=== PATIENT | male | born 1995 | race Caucasian/White ===

== ENCOUNTER 2024-01-23 11:00 | Emergency (ER) | payer SELFPAY ==
[2024-01-23 11:06] VITALS: BP 130/61; PULSE 62; TEMP 36.7; O2SAT 100; BMI 16.6
--- NOTE | 2024-01-23 11:21 | ED.GENADUL1 ---
HPI HPI - General Adult General Chief complaint: Back Pain/Injury Stated complaint: UPPER BACK PAIN Time Seen by Provider: 01/23/24 11:06 Source: patient Mode of arrival: walk-in History of Present Illness HPI narrative: Patient presents to ED complaining of left upper back pain. He said he thinks he may have slept wrong on it last night and when he got up today with turning his head and certain movements he felt a pinching pain. He said he was trying to work today and he does a lot of lifting and bending at work and it was really hurting and sometimes taking his breath away because of the pain.He said sometimes the pain goes into his arm. No arm weakness no known trauma. Normal distal pulses and sensation. No chronic back or neck pain per patient. He said the pain was concerning him and he kind of worked himself into an anxiety situation so he came in for evaluation Related Data Previous Rx's ?Medication ?Instructions ?Recorded cyclobenzaprine 10 mg tablet 10 mg PO TID #14 tabs 01/23/24 Allergies Allergy/AdvReac Type Severity Reaction Status Date / Time Penicillins Allergy Severe Verified 01/23/24 11:09 Opioid HPI Opioid Management Most Recent Opioid Data: No Data to Display Review of Systems ROS Status of ROS 10 or more systems reviewed and unremarkable except as noted in history and below Exam Narrative Exam Narrative: General: alert, no acute distress Cardiovascular: regular rate and rhythm, normal peripheral perfusion. Respiratory: Lungs CTA, respirations non labored. Extremities: no deformity, no trauma. Neurological: oriented x 4, LOC appropriate for age. Mild tenderness to palpation in the left trapezius muscle. 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 Constitutional Vital Signs, click to edit/add: Last Vital Signs Temp 98.0 F 01/23/24 11:06 Pulse 62 01/23/24 11:06 Resp 18 01/23/24 11:06 BP 130/61 01/23/24 11:06 Pulse Ox 100 01/23/24 11:06 O2 Del Method Room Air 01/23/24 11:06 Course Vital Signs Vital signs: Vital Signs Temperature 98.0 F 01/23/24 11:06 Pulse Rate 62 01/23/24 11:06 Respiratory Rate 18 01/23/24 11:06 Blood Pressure 130/61 01/23/24 11:06 Pulse Oximetry 100 01/23/24 11:06 Oxygen Delivery Method Room Air 01/23/24 11:06 Temperature 98.0 F 01/23/24 11:06 Pulse Rate 62 01/23/24 11:06 Respiratory Rate 18 01/23/24 11:06 Blood Pressure 130/61 01/23/24 11:06 Pulse Oximetry 100 01/23/24 11:06 Oxygen Delivery Method Room Air 01/23/24 11:06 Medical Decision Making MDM Narrative Medical decision making narrative: Most likely a trapezius muscle strain with mild nerve impingement. No neurological deficit. Patient will be off work today and tomorrow. Heat massage gentle stretching and take ibuprofen for the pain. Differential Diagnosis Differential Diagnosis: Sprain strain Medical Records Medical records reviewed: Yes I reviewed the patient's medical records Discharge Plan Discharge Stand Alone Forms: Portal Instructions Chief Complaint: Back Pain/Injury Clinical Impression: Trapezius muscle strain Patient Disposition: Home, Self-Care Time of Disposition Decision: 11:25 Condition: Good Prescriptions / Home Meds: New cyclobenzaprine 10 mg tablet 10 mg PO TID Qty: 14 0RF Print Language: Urdu Instructions: Muscle Strain (ED) Referrals: Physician,Non-Staff, MD [Primary Care Provider] - 1 week
== END 2024-01-23 11:40 | disposition home or self-care (01) ==
PROVIDERS: Emergency Provider Emergency Medicine
DX: S29.012A Strain of muscle and tendon of back wall of thorax, initial encounter (principal)
CPT/HCPCS: 99283